=== PATIENT | female | born 1975 | race Two or more races ===

== ENCOUNTER 2019-03-29 23:31 | Emergency (ER) | payer SELFPAY ==
[~2019-03-29] VITALS: Ht 132.1 cm; Wt 65.8 kg
--- NOTE | 2019-03-29 23:50 | NUR ---
BIB SELF FROM HOME. AAOX4. NAD, BREATHING AND UNLABORED. AMBULATORY. C/O EPIGASTRIC PAIN W/ NAUSEA AND DIARRHEA X 3 DAYS. PAIN IS SHARP 03/31. DENIES CP. TO ER BED 11. MD AT BEDSIDE FOR EVAL.
[2019-03-29] MEDS ORDERED: ONDANSETRON HCL/PF 4 MG/2 ML VIAL ONE (23:57)
[2019-03-30] MEDS ORDERED: IV NS 0.9% 1,000 ML BAG IV ONE
[2019-03-30] MEDS ORDERED: ONDANSETRON HCL/PF 4 MG/2 ML VIAL IVP ONE
--- NOTE | 2019-03-30 | NUR ---
IV LINE OBATINED. BLOOD DRAWN AND GIVEN TO MILLINERY WORKER AT BED SIDE.
[2019-03-30 00:05] LABS: BASOPHILS % (AUTO) 0.5 % (0.0-2.0); EOSINOPHILS % (AUTO) 6.9 % (0.0-6.0); HEMATOCRIT 29 % (33-45); HEMOGLOBIN 9.1 g/dL (11.5-14.8); LYMPHOCYTES # (AUTO) 1.9 /CMM (0.8-4.8); LYMPHOCYTES % (AUTO) 49.5 % (20.0-44.0); MEAN CORPUSCULAR HGB CONC 31 g/dl (31.0-36.0); MEAN CORPUSCULAR VOLUME 67 fL (82-100); MONOCYTES # (AUTO) 0.6 /CMM (0.1-1.30); MONOCYTES % (AUTO) 15.6 % (2.0-12.0); NEUTROPHILS % (AUTO) 27.5 % (43.0-81.0); PLATELET COUNT (AUTO) 398 /CMM (150-450); RED BLOOD CELL COUNT(AUTO) 4.34 MIL/uL (4.0-5.2); WHITE BLOOD COUNT (AUTO) 3.7 K/uL (4.3-11.0)
[2019-03-30 00:12] LABS: CREATININE 0.5 mg/dL (0.6-1.3); POTASSIUM 3.7 mmol/L (3.5-5.1)
[2019-03-30] MEDS ORDERED: PANTOPRAZOLE 40 MG/PACK PACK ONE (00:13)
[2019-03-30] MEDS ORDERED: PANTOPRAZOLE 40 MG VIAL ONE (00:14)
[2019-03-30 00:17] LABS: ALBUMIN 3.3 g/dL (3.4-5.0); BILIRUBIN,TOTAL 0.2 mg/dL (0.2-1.0); TOTAL PROTEIN, SERUM 6.5 g/dL (6.4-8.2)
[2019-03-30] MEDS ORDERED: PANTOPRAZOLE 40 MG VIAL IV ONE (00:30)
--- NOTE | 2019-03-30 01:15 | NUR ---
US AT BEDSIDE
--- NOTE | 2019-03-30 01:24 | NUR ---
PT AMBULATED TO BATHROOM W/ STEADY GAIT W/O ASSISTANCE
--- NOTE | 2019-03-30 01:45 | NUR ---
Patient discharged to home in stable condition. Written and verbal after care instructions given. Patient verbalizes understanding of instruction.IV removed. Catheter intact and site benign. Pressure and 4x4 applied to site. No bleeding noted. Pt ambulatory with a steady gait
[2019-03-30 01:46] VITALS: BP 124/75
[2019-03-30 02:02] LABS: NEUTROPHILS % (MANUAL) 26 (42-76)
[2019-03-30 02:03] LABS: MONOCYTES % (MANUAL) 13 % (0-11.0)
[2019-03-30 02:04] LABS: EOSINOPHILS % (MANUAL) 5 % (0-4); LYMPHOCYTES % (MANUAL) 56 % (16-48)
== END 2019-03-30 01:47 | disposition home or self-care (01) ==
LOC: ER 23:35
DX: R10.13 Epigastric pain (principal); R10.11 Right upper quadrant pain; D64.9 Anemia, unspecified; R11.10 Vomiting, unspecified
CPT/HCPCS: 36415; 76705; 80048; 80076; 83690; 85025; 96361; 96374; 96375; 99284; C9113; J2405; J7030